=== PATIENT | female | born 1995 | race Caucasian/White ===

== ENCOUNTER 2018-05-21 09:59 | Day surgery (SDC) | payer BC ==
[~2018-05-21 09:59] MED LIST: Lactated Ringers 1,000 ML IV SCH; Sodium Chloride 0.9% 10 ML Syringe FLUSH PRN; Sodium Chloride 0.9% 2.5 ML Syringe FLUSH PRN
[2018-05-21] MEDS ORDERED: Bupivacaine 0.25% 10 ML SDV ONE (10:50)
--- NOTE | 2018-05-21 11:03 | PCM.PREANE ---
Preanesthetic Assessment - Anesthesia/Transfusion/Family Hx Anesthesia History: Prior Anesthesia Without Reaction Family History of Anesthesia Reaction: No Transfusion History: No Prior Transfusion(s) Intubation History: Unknown - Review of Systems General: No Symptoms Pulmonary: No Symptoms Cardiovascular: No Symptoms Gastrointestinal: No Symptoms Neurological: No Symptoms Other: Reports: None - Physical Assessment Height: 1.65 m Weight: 87.997 kg ASA Class: 2 Mental Status: Alert & Oriented x3 Airway Class: Mallampati = 2 Dentition: Reports: Normal Dentition Thyro-Mental Finger Breadths: 3 Mouth Opening Finger Breadths: 3 ROM/Head Extension: Full Lungs: Clear to Auscultation, Normal Respiratory Effort Cardiovascular: Regular Rate, Regular Rhythm - Lab Values: Laboratory Last Values WBC 8.98 K/uL (4.0-11.0) 05/21/18 10:44 RBC 4.94 M/uL (4.30-5.90) 05/21/18 10:44 Hgb 13.7 g/dL (12.0-16.0) 05/21/18 10:44 Hct 41.7 % (36.0-46.0) 05/21/18 10:44 MCV 84.4 fL (80.0-98.0) 05/21/18 10:44 MCH 27.7 pg (27.0-32.0) 05/21/18 10:44 MCHC 32.9 g/dL (31.0-37.0) 05/21/18 10:44 RDW Std Deviation 41.5 fl (28.0-62.0) 05/21/18 10:44 RDW Coeff of Ghislaine 14 % (11.0-15.0) 05/21/18 10:44 Plt Count 310 K/uL (150-400) 05/21/18 10:44 MPV 9.70 fL (7.40-12.00) 05/21/18 10:44 Nucleated RBC % 0.0 /100WBC 05/21/18 10:44 Nucleated RBCs # 0 K/uL 05/21/18 10:44 - Allergies Allergies/Adverse Reactions: Allergies Allergy/AdvReac Type Severity Reaction Status Date / Time Penicillins Allergy Hives Verified 05/16/18 13:54 - Blood Blood Available: No - Anesthesia Plan Pre-Op Medication Ordered: None - Acknowledgements Anesthesia Type Planned: General Anesthesia Pt an Appropriate Candidate for the Planned Anesthesia: Yes Alternatives and Risks of Anesthesia Discussed w Pt/Guardian: Yes Pt/Guardian Understands and Agrees with Anesthesia Plan: Yes PreAnesthesia Questionnaire HEENT History: Reports: Other (See Below) Other HEENT History: uses glasses for computer work Endocrine/Metabolic History: Reports: Obesity/BMI 30+ Dermatologic History: Reports: Eczema - Past Surgical History HEENT Surgical History: Reports: Oral Surgery Other HEENT Surgeries/Procedures: wisdom teeth removal - SUBSTANCE USE Smoking Status *Q: Current Every Day Smoker Tobacco Use Within Last Twelve Months: Cigarettes Recreational Drug Use History: No - HOME MEDS Home Medications: Home Meds Acetaminophen with Codeine [Tylenol with Codeine #3 Tablet] 1 tab PO Q4H PRN [History] - CURRENT (IN HOUSE) MEDS Current Meds: Current Medications Lactated Ringer's (Ringers, Lactated) 1,000 mls @ 125 mls/hr IV ASDIRECTED NOAM Last Admin: 05/21/18 10:58 Dose: 125 mls/hr Sodium Chloride (Saline Flush) 10 ml FLUSH ASDIRECTED PRN PRN Reason: Keep Vein Open Sodium Chloride (Saline Flush) 2.5 ml FLUSH ASDIRECTED PRN PRN Reason: Keep Vein Open Discontinued Medications Bupivacaine HCl (Sensorcaine-Mpf 0.25%) Confirm Administered Dose 20 ml .ROUTE .STK-MED ONE Stop: 05/21/18 10:51
[2018-05-21] MEDS ORDERED: Midazolam 1 MG/ML 2 ML SDV ONE (11:59)
[2018-05-21] MEDS ORDERED: fentaNYL 250 MCG/5 ML SDV ONE (11:59)
[2018-05-21] MEDS ORDERED: Ondansetron 4 MG/2 ML SDV ONE (11:59)
[2018-05-21] MEDS ORDERED: Rocuronium 10 MG/ML 10 ML Syringe ONE (11:59)
[2018-05-21] MEDS ORDERED: Propofol 200 MG/20 ML SDV ONE (11:59)
[2018-05-21] MEDS ORDERED: Lidocaine 2% 5 ML SDV ONE (11:59)
[2018-05-21] MEDS ORDERED: Atropine 1 MG/ML SDV IVPUSH PRN ×2 (12:58)
[2018-05-21] MEDS ORDERED: Naloxone 0.4 MG/ML Syringe IVPUSH PRN (12:58)
[2018-05-21] MEDS ORDERED: fentaNYL 100 MCG/2 ML SDV IVPUSH PRN (12:58)
[2018-05-21] MEDS ORDERED: Albuterol 0.083% 2.5 MG/3 ML Neb Soln NEB PRN (12:58)
[2018-05-21] MEDS ORDERED: 50% Dextrose in Water 50 ML Syringe IVPUSH PRN (12:58)
[2018-05-21] MEDS ORDERED: EPINEPHrine 1 MG/1 ML Amp IVPUSH ONE (12:58)
[2018-05-21] MEDS ORDERED: HYDROmorphone 2 MG/ML Syringe ONE (13:06)
[2018-05-21] MEDS ORDERED: Methylene Blue 50 MG/10 ML Ampule ONE (13:27)
[2018-05-21] MEDS ORDERED: Ketorolac 30 MG/ML SDV ONE (13:42)
--- NOTE | 2018-05-21 14:02 | PCM.OPNOTE ---
- General Post-Op/Procedure Note Date of Surgery/Procedure: 05/21/18 Operative Procedure(s): Operative laparoscopy, left ovarian cyst evacuation/ cystectomy, pelvic washings, adhesiolysis, ablation of endometriosis, chromotubation Findings: left suspected endometrioma, posterior pelvis peritoneal endometriosis implants. Normal appearing left tube/ovary. Bilateral patent tubes. Pre Op Diagnosis: Left complex ovarian cyst. Pelvic pain Post-Op Diagnosis: Same Anesthesia Technique: General ET Tube Primary Surgeon: Mehnaz Otero Pathology: ovarian cyst wall, pelvic washing, ovarian cyst aspirate Fluid Replacement, Intraop: 2,000 EBL in mLs: 10 Complications: none known Condition: Good Free Text/Narrative:: Dictation [id number]
--- NOTE | 2018-05-21 14:34 | PCM.POSTAN ---
POST ANESTHESIA ASSESSMENT - MENTAL STATUS Mental Status: Alert, Oriented - RESPIRATORY Respiratory Status: Respiratory Rate WNL, Airway Patent, O2 Saturation Stable - CARDIOVASCULAR CV Status: Pulse Rate WNL, Blood Pressure Stable - GASTROINTESTINAL GI Status: No Symptoms - PAIN Pain Score: 2 - POST OP HYDRATION Hydration Status: Adequate & Stable - OBSERVATIONS Free Text/Narrative:: no anesthesia problems
--- NOTE | 2018-05-21 16:29 | PCM48HPAN ---
Post Anesthesia Note - EVALUATION WITHIN 48HRS OF ANESTHETIC Vital Signs in Normal Range: Yes Patient Participated in Evaluation: Yes Respiratory Function Stable: Yes Airway Patent: Yes Cardiovascular Function Stable: Yes Hydration Status Stable: Yes Pain Control Satisfactory: Yes Nausea and Vomiting Control Satisfactory: Yes Mental Status Recovered: Yes Resp Rate: 19 - COMMENTS/OBSERVATIONS Free Text/Narrative:: no anesthesia problems
--- NOTE | 2018-05-21 18:23 | OR ---
SURGEON: Mehnaz Otero M.D. DATE OF PROCEDURE: 05/21/2018 PREOPERATIVE DIAGNOSES: 1. Left complex ovarian cyst. 2. Pelvic pain. POSTOPERATIVE DIAGNOSES: 1. Left complex ovarian cyst. 2. Pelvic pain. PROCEDURES: Operative laparoscopy with pelvic washings, left ovarian cyst aspiration and cystectomy, adhesiolysis, ablation of endometriosis and chromotubation. ANESTHESIA: General endotracheal anesthesia. FLUIDS: 2000 mL crystalloid. ESTIMATED BLOOD LOSS: 10 mL. COMPLICATIONS: None. FINDINGS: Left suspected 5-cm endometrioma, right posterior pelvic wall endometriosis implants, normal-appearing right tube and ovary, mobile uterus. DISPOSITION: The patient to PACU, stable. SPECIMEN: To pathology. PROCEDURE IN DETAIL: Rishi is a 23-year-old female who has had ongoing difficulties with pelvic pain and on CT scan followed by ultrasound was found to have a 5 to 6 cm complex left ovarian cyst that is not resolving with interval followup. This time, she would like to proceed with surgical intervention from laparoscopy to further evaluate the cyst and to remove as much possible. Risks of procedure discussed and proper consent obtained. The patient taken to the operating room where she underwent general endotracheal anesthesia and was placed in modified dorsal lithotomy position, was prepped and draped in the usual sterile fashion. SCDs to lower extremities. Bladder was drained. Time-out was performed. Speculum was introduced into the vagina, cervix was visualized. Anterior lip of cervix was grasped with an Allis clamp. The Humi uterine manipulator was gently introduced, balloon insufflated. The Allis clamp and speculum were removed. Gloves changed. Attention turned abdominally. Infraumbilically, 0.25% Marcaine was introduced. A 5-mm midline sagittal skin incision was created. Anterior abdominal wall tented upward and Veress needle was gently introduced. Saline hanging drop test was performed. Pneumoperitoneum was achieved. The Veress needle was removed. 5 mm trocar was introduced with laparoscope, peritoneal contents were identified. The uterus overall is fairly mobile. The right tube and ovary appeared normal. The left ovary appears distended and fairly adhesed. Therefore, right and left quadrant trocars were introduced after prepping the regions with 0.25% Marcaine and creating 5 mm skin incisions under direct visualization. The pelvic washings were now performed. The cyst did rupture spontaneously at this juncture and the cyst fluid was evacuated, will be sent to Pathology for analysis. The region was now copiously irrigated and suction dried. The ovary itself was not very mobile with many adhesions noted along the mesentery and left ovary. These were gently lysed using Harmonic Scalpel. Now the ovary is more mobile. The edge of the ovarian wall was able to be grasped and the underlying cyst wall was able to be gently also grasped and removed. This will be sent to Pathology for further analysis. The wound bed was now copiously irrigated and cauterized with Harmonic scalpel. Hemostasis appeared evident. Posterior aspect of the uterus is now more easily visible and with visualization, there appears to be right endometriosis implant near the uterosacral ligament and along the midline. Cul-de-sac is fully visualized. The anterior cul-de-sac appears smooth. No lesions are visualized. At this juncture, dilute methylene blue was introduced through the Humi uterine manipulator and bilateral fallopian tubes seen to have blue dye spilling from them, helping to assure fallopian tube patency. Photographs taken. The pelvis was now copiously irrigated. The areas of the probable endometriosis implants along the posterior pelvic peritoneum are now cauterized using Harmonic scalpel. The pelvis was once again copiously irrigated and suction dried. Hemostasis appeared evident. Pneumoperitoneum was released. Hemostasis still appeared evident. The right and left trocars were removed under direct visualization followed by laparoscope and infraumbilical trocar, releasing as much of the pneumoperitoneum as possible. The skin edges were reapproximated using 3-0 Monocryl in subcuticular fashion. The uterine manipulator was gently removed after deflating the balloon. The cervix was visualized and found to be hemostatic. All instruments were removed from the vagina. Sponge, instrument, needle count was correct x2. The patient tolerated the procedure well overall. She will go to PACU in stable condition. Specimens to pathology. FRANCIA / TREVOR /[id number]
== END 2018-05-21 17:05 | disposition home or self-care (01) ==
LOC: MW.SDS 09:59
PROVIDERS: ATTEND Obstetrics & Gynecology
DX: N80.1 Endometriosis of ovary (principal); R10.2 Pelvic and perineal pain; F17.210 Nicotine dependence, cigarettes, uncomplicated; E66.9 Obesity, unspecified; Z68.32 Body mass index [BMI] 32.0-32.9, adult; L30.9 Dermatitis, unspecified; Z88.0 Allergy status to penicillin
CPT/HCPCS: 36415; 58662; 84703; 85027; J1170; J1885; J2001; J2250; J2405; J2704; J3010; J3490; J7120; 00840

== ENCOUNTER 2023-07-11 06:19 | Day surgery (SDC) | payer BC ==
[2023-07-11] MEDS ORDERED: propofoL 100 ML ONE (06:24)
[2023-07-11] MEDS ORDERED: Lidocaine 2% 5 ML SDV ONE (06:24)
[2023-07-11] MEDS ORDERED: Ropivacaine 0.5% 5 MG/ML 30 ML SDV ONE (06:24)
[2023-07-11] MEDS ORDERED: Midazolam 1 MG/ML 2 ML SDV ONE (06:29)
[2023-07-11] MEDS ORDERED: dexmedeTOMIDine HCl 200 MCG/2 ML SDV ONE (06:30)
[2023-07-11] MEDS ORDERED: Dexamethasone 4 MG/ML 5 ML MDV ONE (06:30)
[2023-07-11] MEDS ORDERED: Ondansetron 4 MG/2 ML SDV ONE ×2 (06:30→08:09)
[2023-07-11] MEDS ORDERED: Scopalamine 1mg/3day Transdermal Patch ONE (06:30)
[2023-07-11] MEDS ORDERED: Water For Injection, Sterile 20 ML ONE (06:31)
[2023-07-11] MEDS ORDERED: Magnesium Sulfate (4.06 MEQ/ML) 5 GM/10 ML SDV ONE (06:42)
[2023-07-11] MEDS ORDERED: ceFAZolin 1 GM Vial ONE (06:42)
[2023-07-11] MEDS ORDERED: Ketamine HCL/NACL, ISO-OSM 50 MG/5 ML Syringe ONE (06:43)
[2023-07-11] MEDS ORDERED: Metoclopramide 10 MG/2 ML SDV IVPUSH PRN (06:55)
[2023-07-11] MEDS ORDERED: Morphine 2 MG/ML SYRINGE IVPUSH PRN (06:55)
[2023-07-11] MEDS ORDERED: droPERidol 5 MG/2 ML SDV IVPUSH PRN (06:55)
[2023-07-11] MEDS ORDERED: fentaNYL 50 MCG/ML SDV IVPUSH PRN (06:55)
[2023-07-11] MEDS ORDERED: Ondansetron 4 MG/2 ML SDV IVPUSH PRN (06:55)
[2023-07-11] MEDS ORDERED: Naloxone 0.4 MG/ML SDV IVPUSH PRN (06:55)
[2023-07-11] MEDS ORDERED: Albuterol 0.083% 2.5 MG/3 ML Neb Soln NEB PRN (06:55)
[2023-07-11] MEDS ORDERED: HYDROmorphone 1 MG/ML Syringe IVPUSH PRN (06:55)
[2023-07-11] MEDS: Lactated Ringers 1,000 ML IV SCH (06:57)
[2023-07-11] MEDS ORDERED: ceFAZolin 2 GM in Sodium Chloride 0.9% 50 ML IV ONE (07:00)
[2023-07-11] MEDS ORDERED: Bupivacaine 0.5%/EPINEPHrine 1:200,000 30 ML SDV ONE (07:14)
[2023-07-11] MEDS ORDERED: Gabapentin 300 MG Cap ONE (07:17)
[2023-07-11] MEDS ORDERED: Phenylephrine 1% 10 MG/ML SDV ONE (07:20)
[2023-07-11] MEDS ORDERED: propofoL 50 ML ONE ×2 (08:19→08:25)
[2023-07-11] MEDS ORDERED: Ketorolac 30 MG/ML SDV ONE (10:28)
== END 2023-07-11 17:04 | disposition home or self-care (01) ==
LOC: MW.SDS 06:19
PROVIDERS: ATTEND Orthopaedic Surgery
DX: S83.511A Sprain of anterior cruciate ligament of right knee, initial encounter (principal); S83.241A Other tear of medial meniscus, current injury, right knee, initial encounter; Z79.899 Other long term (current) drug therapy; Z88.0 Allergy status to penicillin
CPT/HCPCS: 29881; 29888; 64448; 81025; A9270; J0131; J0690; J1100; J1885; J2250; J2371; J2405; J2704; J2795; J3475; J7120; C1713; J3490